=== PATIENT | female | born 1990 | race Caucasian/White ===

== ENCOUNTER 2019-11-30 08:16 | Emergency (ER) | payer MEDICAID ==
--- NOTE | 2019-11-30 10:52 | ER Document Report ---
HPI - HPI Patient complains to provider of: Bilateral ear irritation sore throat Time Seen by Provider: 11/30/19 10:32 Onset: Yesterday Pain Level: 4 Context: 29-year-old female presents emergency department with complaints of bilateral ear irritation and sore throat since yesterday. Reports she used Mucinex and been sucking on throat lozenges but still does not feel well. Denies fever vomiting. Denies recent exposure to strep. Reports her son has a cold. Associated Symptoms: denies: Body/muscle aches, Fever, Nausea, Vomiting - CONSTITUTIONAL Constitutional: DENIES: Fever, Chills - EENT EENT: REPORTS: Sore Throat, Ear Pain. DENIES: Eye problems - NEURO Neurology: DENIES: Headache, Weakness, Vision blurred, Dizzinesss / Vertigo - CARDIOVASCULAR Cardiovascular: DENIES: Chest pain - RESPIRATORY Respiratory: REPORTS: Coughing - DRY. DENIES: Trouble Breathing - GASTROINTESTINAL Gastrointestinal: DENIES: Abdominal Pain, Black / Bloody Stools - URINARY Urinary: DENIES: Dysuria, Urgency, Frequency - REPRODUCTIVE Reproductive: DENIES: : - MUSCULOSKELETAL Musculoskeletal: DENIES: Extremity pain Past Medical History - General Information source: Patient - Social History Smoking Status: Current Every Day Smoker Cigarette use (# per day): Yes Frequency of alcohol use: None Drug Abuse: None Occupation: [employer] Lives with: Family Family History: Arthritis, CAD, COPD, CVA, DM, Hyperlipidemia, Hypertension, Malignancy, Thyroid Disfunction Patient has suicidal ideation: No Patient has homicidal ideation: No Pulmonary Medical History: Reports: Hx Asthma GI Medical History: Reports: Hx Hepatitis - Hepatitis C Musculoskeletal Medical History: Reports Hx Musculoskeletal Deformity, Reports Hx Musculoskeletal Trauma Psychiatric Medical History: Reports: Hx Anxiety, Hx Depression - Anxiety Traumatic Medical History: Denies: Hx Fractures Infectious Medical History: Reports: Hx Hepatitis - Hepatitis C Past Surgical History: Reports: Hx Oral Surgery - Immunizations Immunizations up to date: No Hx Diphtheria, Pertussis, Tetanus Vaccination: No - 2007 Vertical Provider Document - CONSTITUTIONAL Agree With Documented VS: Yes Exam Limitations: No Limitations General Appearance: WD/WN, No Apparent Distress - INFECTION CONTROL TRAVEL OUTSIDE OF THE [place] IN LAST 30 DAYS: No - HEENT HEENT: Atraumatic, Normal ENT Exam, Normocephalic. negative: Conjuctival Injection, Pharyngeal Erythema, Tympanic Membrane Red, Tympanic Membrane Bulging - NECK Neck: Normal Inspection, Supple - RESPIRATORY Respiratory: Breath Sounds Normal, No Respiratory Distress - CARDIOVASCULAR Cardiovascular: Regular Rate - GI/ABDOMEN Gastrointestinal: Abdomen Soft, Abdomen Non-Tender - MUSCULOSKELETAL/EXTREMETIES Musculoskeletal/Extremeties: VICKY BLAKE - NEURO Level of Consciousness: Awake, Alert, Appropriate Motor/Sensory: No Motor Deficit - DERM Integumentary: Warm, Dry Course - Re-evaluation Re-evalutation: 11/30/19 10:55 Patient was instructed on negative strep. She has a clear voice opens mouth wide no tonsillar exudate. She was instructed on throat culture pending. She was also instructed on warm salt water gargles throat lozenges return for concerns. She verbalized understanding to all instructions. - Vital Signs Vital signs: Temp Pulse Resp BP Pulse Ox 97.5 F 90 17 138/79 H 96 11/30/19 08:26 11/30/19 08:26 11/30/19 08:26 11/30/19 08:26 11/30/19 08:26 Discharge - Discharge Clinical Impression: Sore throat, Irritation of both ears Condition: Stable Disposition: HOME, SELF-CARE Instructions: Sore Throat ([facility]) Additional Instructions: *You have been evaluated for a sore throat, bilateral ear irritation *Your strep test was negative. A throat culture is pending. You may be conta cted in 3 to 4 days should you need antibiotics *In the meantime gargle with warm salt water continue to suck on throat lozenges and push fluids *Do not let anyone drink/eat after you *Good hand washing *Follow-up with a primary care provider within 1 week for recheck *Return to ED for worsening condition change, needs, concerns Forms: Return to Work Referrals: JOSEPHINE OATES MD [Primary Care Provider] - Follow up in 1 week
[2019-11-30 10:56] VITALS: BP 137/80
== END 2019-11-30 10:54 | disposition home or self-care (01) ==
LOC: ER 08:16
DX: J02.9 Acute pharyngitis, unspecified (principal); H92.03 Otalgia, bilateral; F17.210 Nicotine dependence, cigarettes, uncomplicated; Z86.19 Personal history of other infectious and parasitic diseases
CPT/HCPCS: 87070; 87880

== ENCOUNTER 2020-01-30 18:48 | Emergency (ER) | payer MEDICAID ==
--- NOTE | 2020-01-30 19:40 | ER Document Report ---
ED General - General Chief Complaint: Vag Bleeding, +preg <12wks Stated Complaint: VAGINAL BLEEDING Time Seen by Provider: 01/30/20 19:17 Primary Care Provider: ROB SHIELDS MD [ACTIVE STAFF] - Follow up as needed JOSEPHINE OATES MD [Primary Care Provider] - Follow up as needed ARCHANA HAN MD [ACTIVE STAFF] - Follow up as needed Mode of Arrival: Ambulatory Information source: Patient TRAVEL OUTSIDE OF THE [place] IN LAST 30 DAYS: No - HPI Onset: Other - over the last few days Onset/Duration: Gradual Quality of pain: No pain Severity: Mild Pain Level: Denies Associated symptoms: Other - heavy vaginal bleeding Exacerbated by: Denies Relieved by: Denies Similar symptoms previously: No Recently seen / treated by doctor: No Notes: 29 year old female here in the ER for heavy vaginal bleeding. The patient says her period was about 10 days late and much heavier than normal. The patient says she took a home test 3 days ago which was positive. The patient denies nausea, vomiting, abdominal pain, pelvic pain, urinary symptoms. - Related Data Allergies/Adverse Reactions: amoxicillin [Amoxicillin] Allergy (Verified 11/30/19 08:25) Penicillins Allergy (Verified 11/30/19 08:25) hives, difficulty breathing Past Medical History - General Information source: Patient - Social History Smoking Status: Current Every Day Smoker Frequency of alcohol use: None Drug Abuse: None Lives with: Family Family History: Arthritis, CAD, COPD, CVA, DM, Hyperlipidemia, Hypertension, Malignancy, Thyroid Disfunction Pulmonary Medical History: Reports: Hx Asthma Endocrine Medical History: GI Medical History: Reports: Hx Hepatitis - Hepatitis C Musculoskeletal Medical History: Reports Hx Musculoskeletal Deformity, Reports Hx Musculoskeletal Trauma Psychiatric Medical History: Reports: Hx Anxiety, Hx Depression - Anxiety Traumatic Medical History: Denies: Hx Fractures Infectious Medical History: Reports: Hx Hepatitis - Hepatitis C Past Surgical History: Reports: Hx Oral Surgery - Immunizations Immunizations up to date: No Hx Diphtheria, Pertussis, Tetanus Vaccination: No - 2007 Review of Systems - Review of Systems Constitutional: No symptoms reported EENT: No symptoms reported Cardiovascular: No symptoms reported Respiratory: No symptoms reported Gastrointestinal: No symptoms reported Genitourinary: No symptoms reported Female Genitourinary: Vaginal bleeding Musculoskeletal: No symptoms reported Skin: No symptoms reported Hematologic/Lymphatic: No symptoms reported Neurological/Psychological: No symptoms reported -: Yes All other systems reviewed and negative Physical Exam - Vital signs Vitals: Temp Pulse Resp BP Pulse Ox 99.4 F 89 16 164/82 H 99 01/30/20 18:49 01/30/20 18:49 01/30/20 18:49 01/30/20 18:49 01/30/20 18:49 - Notes Notes: GENERAL: Well-appearing, well-nourished and in no acute distress. HEAD: Atraumatic, normocephalic. EYES: Pupils equal round and reactive to light, extraocular movements intact, sclera anicteric, conjunctiva are normal. ENT: Nares patent, oropharynx clear without exudates. Moist mucous membranes. NECK: Normal range of motion, supple without lymphadenopathy or JVD. LUNGS: Breath sounds clear to auscultation bilaterally and equal. No wheezes rales or rhonchi. HEART: Regular rate and rhythm without murmurs, rubs or gallops. ABDOMEN: Soft, nontender, normoactive bowel sounds. No guarding, no rebound. No masses appreciated. EXTREMITIES: Normal range of motion, no pitting or edema. No clubbing or cyanosis. NEUROLOGICAL: Cranial nerves II through XII grossly intact. Normal speech, normal gait. PSYCH: Normal mood, normal affect. SKIN: Warm, Dry, normal turgor, no rashes or lesions noted. Course - Re-evaluation Re-evalutation: 01/30/20 20:36 The patient is here for vaginal bleeding in the setting of taking a home test which was positive 3 days ago. The patient's serum HCG is less than 2.69 which is in the negative range. Patient either was never pre gnant or she had a miscarriage extremely early in her . Patient told to follow up with an LOGGING TRUCK DRIVER Doctor or her PCP. The patient did not want to have a pelvic exam since she just had one a month ago with negative testing at her PCPs. - Vital Signs Vital signs: Temp Pulse Resp BP Pulse Ox 99.4 F 89 16 164/82 H 99 01/30/20 18:49 01/30/20 18:49 01/30/20 18:49 01/30/20 18:49 01/30/20 18:49 - Laboratory Result Diagrams: 01/30/20 20:04 01/30/20 20:04 Laboratory results interpreted by me: 01/30/20 01/30/20 20:04 20:04 MCH 33.5 H Chloride 109 H Discharge - Discharge Clinical Impression: Vaginal bleeding Condition: Stable Disposition: HOME, SELF-CARE Instructions: Miscarriage ([facility]), Threatened Miscarriage ([facility]), Vaginal Bleeding ([facility]) Additional Instructions: You came to the ER for vaginal bleeding. Your Beta HCG is 2.39 which is extremely low. Follow up with an LOGGING TRUCK DRIVER Doctor for a repeat Beta HCG. You should also have a repeat pelvic exam since you preferred not to have one in the ER today. Referrals: JOSEPHINE OATES MD [Primary Care Provider] - Follow up as needed ARCHANA HAN MD [ACTIVE STAFF] - Follow up as needed ROB SHIELDS MD [ACTIVE STAFF] - Follow up as needed
[2020-01-30 20:38] LABS: ABSOLUTE EOSINOPHILS # (AUTO) 0.5 10^3/uL (0.0-0.6); ABSOLUTE LYMPHOCYTES (AUTO) 2.9 10^3/uL (0.5-4.7); ABSOLUTE MONOCYTES (AUTO) 0.6 10^3/uL (0.1-1.4); BASOPHILS % (AUTO) 0.6 % (0-2); EOSINOPHILS % (AUTO) 5.7 % (0-6); HEMATOCRIT 36.5 % (36.0-47.0); HEMOGLOBIN 13.1 g/dL (12.0-15.5); LYMPHOCYTES % (AUTO) 35.8 % (13-45); MEAN CORPUSCULAR HEMOGLOBIN 33.5 pg (27.0-33.4); MEAN CORPUSCULAR HGB CONC 35.9 g/dL (32.0-36.0); MEAN CORPUSCULAR VOLUME 93 fl (80-97); MONOCYTES % (AUTO) 7.7 % (3-13); PLATELET COUNT 251 10^3/uL (150-450); RED BLOOD COUNT 3.92 10^6/uL (3.72-5.28); RED CELL DISTRIBUTION WIDTH 12.9 % (11.5-14.0); SEGMENTED NEUTROPHILS % (AUTO) 50.2 % (42-78); TOTAL CELLS COUNTED % (AUTO) 100 %
[2020-01-30 20:51] LABS: APPEARANCE,URINE CLEAR; BILIRUBIN,URINE NEGATIVE (NEGATIVE); COLOR,URINE YELLOW; GLUCOSE, URINE NEGATIVE (NEGATIVE); KETONES,URINE NEGATIVE (NEGATIVE); LEUKOCYTE ESTERASE,URINE NEGATIVE (NEGATIVE); NITRITE,URINE NEGATIVE (NEGATIVE); PROTEIN,URINE NEGATIVE (NEGATIVE); URINE SPECIFIC GRAVITY 1.019; UROBILINOGEN,URINE NEGATIVE mg/dL (<2.0)
[2020-01-30 20:58] LABS: ALBUMIN 3.8 g/dL (3.5-5.0); ALKALINE PHOSPHATASE 47 U/L (38-126); ANION GAP 6 (5-19); ASPARTATE AMINO TRANSFERASE 20 U/L (14-36); BILIRUBIN,TOTAL 0.2 mg/dL (0.2-1.3); BLOOD UREA NITROGEN 14 mg/dL (7-20); CALCIUM 8.5 mg/dL (8.4-10.2); CARBON DIOXIDE 25 mmol/L (22-30); CHLORIDE 109 mmol/L (98-107); GLUCOSE 99 mg/dL (75-110); POTASSIUM 3.6 mmol/L (3.6-5.0); TOTAL PROTEIN 6.7 g/dL (6.3-8.2)
[2020-01-30 21:59] VITALS: BP 146/82
== END 2020-01-30 21:59 | disposition home or self-care (01) ==
LOC: ER 18:48
DX: N93.9 Abnormal uterine and vaginal bleeding, unspecified (principal); F17.200 Nicotine dependence, unspecified, uncomplicated; Z88.1 Allergy status to other antibiotic agents; Z88.0 Allergy status to penicillin; J45.909 Unspecified asthma, uncomplicated
CPT/HCPCS: 36415; 80053; 81001; 84702; 85025; 99284

== ENCOUNTER 2020-02-06 09:11 | Emergency (ER) | payer MEDICAID ==
[2020-02-06 09:19] VITALS: BP 143/80
[2020-02-06] MEDS ORDERED: HYDROCODONE/ACETAMINOPHEN 5-325 MG TABLET PO ONE (09:22)
--- NOTE | 2020-02-06 09:30 | ER Document Report ---
HPI - HPI Patient complains to provider of: Right foot pain Time Seen by Provider: 02/06/20 09:17 Onset: Last week Onset/Duration: Persistent Quality of pain: Burning Pain Level: 4 Context: Patient states she has a previous history of right foot fracture about a year ago. Patient states that she was pushing her vehicle after it broke down and felt a pop in the same area where she had injured her foot in the past. Patient complains of pain with walking. Associated Symptoms: Other - Right foot pain Exacerbated by: Standing, Movement, Walking Relieved by: Denies Similar symptoms previously: Yes Recently seen / treated by doctor: No - ROS ROS below otherwise negative: Yes Systems Reviewed and Negative: Yes All other systems reviewed and negative - CONSTITUTIONAL Constitutional: DENIES: Fever, Chills - NEURO Neurology: DENIES: Weakness - REPRODUCTIVE Reproductive: DENIES: : - MUSCULOSKELETAL Musculoskeletal: REPORTS: Extremity pain - DERM Skin Color: Normal Skin Problems: None Past Medical History - General Information source: Patient - Social History Smoking Status: Current Every Day Smoker Frequency of alcohol use: None Drug Abuse: None Occupation: [employer] Lives with: Family Family History: Arthritis, CAD, COPD, CVA, DM, Hyperlipidemia, Hypertension, Malignancy, Thyroid Disfunction Patient has suicidal ideation: No Patient has homicidal ideation: No Pulmonary Medical History: Reports: Hx Asthma Endocrine Medical History: GI Medical History: Reports: Hx Hepatitis - Hepatitis C Musculoskeletal Medical History: Reports Hx Musculoskeletal Deformity, Reports Hx Musculoskeletal Trauma Psychiatric Medical History: Reports: Hx Anxiety, Hx Depression - Anxiety Traumatic Medical History: Denies: Hx Fractures Infectious Medical History: Reports: Hx Hepatitis - Hepatitis C Past Surgical History: Reports: Hx Oral Surgery - Immunizations Immunizations up to date: No Hx Diphtheria, Pertussis, Tetanus Vaccination: No - 2008 Vertical Provider Document - CONSTITUTIONAL Agree With Documented VS: Yes Exam Limitations: No Limitations General Appearance: WD/WN, No Apparent Distress - INFECTION CONTROL TRAVEL OUTSIDE OF THE [place] IN LAST 30 DAYS: No - HEENT HEENT: Atraumatic, Normocephalic - NECK Neck: Normal Inspection - RESPIRATORY Respiratory: No Respiratory Distress - CARDIOVASCULAR Pulses: Normal: Dorsalis pedis - MUSCULOSKELETAL/EXTREMETIES Musculoskeletal/Extremeties: MAEW, Tender - Right foot tenderness over fifth metatarsal with 1+ edema, Edema. negative: Eccymosis - NEURO Level of Consciousness: Awake, Alert, Appropriate Motor/Sensory: No Motor Deficit Course - Re-evaluation Re-evalutation: 02/06/20 10:22 Patient with reported history of previous fracture at the site of tenderness. Will immobilize and treat for possible occult fracture and refer to orthopedics at this time. Patient verbalized understanding is agreeable with discharge plan of care. - Vital Signs Vital signs: Temp Pulse Resp BP Pulse Ox 97.7 F 68 16 143/80 H 97 02/06/20 09:17 02/06/20 09:17 02/06/20 09:17 02/06/20 09:17 02/06/20 09:17 - Diagnostic Test Radiology reviewed: Image reviewed, Reports reviewed Procedures - Immobilization Right Foot Pre-Proc Neuro Vasc Exam: Normal Immobilizer type: Posterior ankle Performed by: PCT Post-Proc Neuro Vasc Exam: Normal Alignment checked and good: Yes Discharge - Discharge Clinical Impression: Foot injury Qualifiers: Encounter type: initial encounter Laterality: right Qualified Code(s): S99.921A - Unspecified injury of right foot, initial encounter Foot sprain Qualifiers: Encounter type: initial encounter Laterality: right Qualified Code(s): S93.601A - Unspecified sprain of right foot, initial encounter Condition: Stable Disposition: HOME, SELF-CARE Instructions: Ice & Elevation ([facility]), Possible Hidden Fracture ([facility]), Splint Precautions ([facility]), Sprain ([facility]) Additional Instructions: Return immediately for any new or worsening symptoms Followup with your primary care provider, call tomorrow to make a followup appointment Follow-up with orthopedics for further evaluation, call today to make a follow- up appointment Prescriptions: Naproxen [Naprosyn 250 Nmg Tablet] 1 tab PO BID #14 tablet Forms: Parent Work Note, Return to Work Referrals: JOSEPHINE OATES MD [NO LOCAL MD] - Follow up as needed [facility] [Provider Group] - Follow up tomorrow
--- NOTE | 2020-02-06 10:12 | RADIOLOGY REPORT (SQ) ---
EXAM DESCRIPTION: FOOT RIGHT COMPLETE IMAGES COMPLETED DATE/TIME: 02/06/2020 9:39 am REASON FOR STUDY: felt pop, r 5th MT COMPARISON: None. NUMBER OF VIEWS: Three views. TECHNIQUE: AP, lateral and oblique radiographic images acquired of the right foot. LIMITATIONS: None. FINDINGS: MINERALIZATION: Normal. BONES: No definite acute fracture. No dislocation. Subtle sclerotic band and cortical irregularity at the base of the 5th metatarsal possibly related to remote injury or stress reaction. Metatarsus p rimus varus. JOINTS: No effusions. SOFT TISSUES: Foot soft tissue swelling laterally. No radiopaque foreign body. OTHER: No other significant finding. IMPRESSION: No displaced fracture. Subtle sclerotic band and cortical irregularity at the base of t he 5th metatarsal, possibly related to remote injury or stress reaction. Mild lateral forefoot soft tissue swelling. TECHNICAL DOCUMENTATION: JOB ID: [id number] 2010 [employer]- All Rights Reserved Reading location - IP/workstation name: [email or web address]
== END 2020-02-06 10:39 | disposition home or self-care (01) ==
LOC: ER 09:11
DX: S93.601A Unspecified sprain of right foot, initial encounter (principal); X58.XXXA Exposure to other specified factors, initial encounter; F17.200 Nicotine dependence, unspecified, uncomplicated; J45.909 Unspecified asthma, uncomplicated
CPT/HCPCS: 99283

== ENCOUNTER 2020-07-07 20:50 | Emergency (ER) | payer MEDICAID ==
[2020-07-07] MEDS ORDERED: HYDROCODONE/ACETAMINOPHEN 5-325 MG (6 TAB/ER DISP) PO PRN (21:14)
--- NOTE | 2020-07-07 21:16 | ER Document Report ---
HPI - HPI Patient complains to provider of: dental pain Time Seen by Provider: 07/07/20 21:13 Context: 30-year-old female no previous medical problems presents to the emergency room complaining of worsening right upper posterior molar pain that started a month ago. States she fractured the tooth approximately a month ago. States she saw her dentist 2 weeks ago and she was referred to an oral surgeon for extraction which she cannot get done until July. States that she was told to take ibuprofen and Tylenol for the pain. States she is been taking Motrin, Tylenol, aspirin, Aleve, and multiple other [id number] medications without relief. Denies any fevers. Denies any chance of . Associated Symptoms: None Exacerbated by: Denies Relieved by: Denies Similar symptoms previously: No Recently seen / treated by doctor: No - ROS Systems Reviewed and Negative: Yes All other systems reviewed and negative - CONSTITUTIONAL Constitutional: DENIES: Fever - EENT Notes: Dental pain - NEURO Neurology: DENIES: Weakness - REPRODUCTIVE Reproductive: DENIES: : - DERM Skin Color: Normal Skin Problems: None Past Medical History - General Information source: Patient - Social History Smoking Status: Current Every Day Smoker Frequency of alcohol use: None Drug Abuse: None Family History: Arthritis, CAD, COPD, CVA, DM, Hyperlipidemia, Hypertension, Malignancy, Thyroid Disfunction Pulmonary Medical History: Reports: Hx Asthma Endocrine Medical History: GI Medical History: Reports: Hx Hepatitis - Hepatitis C Musculoskeletal Medical History: Reports Hx Musculoskeletal Deformity, Reports Hx Musculoskeletal Trauma Psychiatric Medical History: Reports: Hx Anxiety, Hx Depression - Anxiety Traumatic Medical History: Denies: Hx Fractures Infectious Medical History: Reports: Hx Hepatitis - Hepatitis C Past Surgical History: Reports: Hx Oral Surgery - Immunizations Immunizations up to date: No Hx Diphtheria, Pertussis, Tetanus Vaccination: No - 2007 Vertical Provider Document - CONSTITUTIONAL Agree With Documented VS: Yes Exam Limitations: No Limitations General Appearance: Mild Distress - INFECTION CONTROL TRAVEL OUTSIDE OF THE [place] IN LAST 30 DAYS: No - HEENT HEENT: Atraumatic, Dental Injury, Normocephalic. negative: Pharyngeal Erythema, Tympanic Membrane Red, Tympanic Membrane Bulging Notes: Right upper posterior molar is fractured. There is no erythema or swelling to the gum. It is tender to palpation. No signs of abscess. - NECK Neck: Normal Inspection, Supple, Thyroid Normal - RESPIRATORY Respiratory: Breath Sounds Normal, No Respiratory Distress, Chest Non-Tender - CARDIOVASCULAR Cardiovascular: Regular Rate, Regular Rhythm, No Murmur - MUSCULOSKELETAL/EXTREMETIES Musculoskeletal/Extremeties: FROM, Non-Tender - NEURO Level of Consciousness: Awake, Alert, Appropriate Motor/Sensory: No Motor Deficit, No Sensory Deficit - DERM Integumentary: Warm, Dry, No Rash Course - Re-evaluation Re-evalutation: 07/07/20 21:13 Reviewed patient's E force records no history of narcotic use. Counseled patient that we can send her home with pain medication ([place] pack x6 pills to go ) for couple of days but that she would need to follow-up with a dentist and oral surgeon as scheduled for any additional pain medication. No signs of infection antibiotics not indicated at this time. Patient was given strict return to the emergency room guidelines. Return for any new or worsening symptoms. All questions were answered. Patient verbalized understanding and agrees with plan of care. 07/07/20 21:26 - Vital Signs Vital signs: Temp Pulse Resp BP Pulse Ox 98.2 F 80 12 147/85 H 98 07/07/20 21:01 07/07/20 21:01 07/07/20 21:01 07/07/20 21:01 07/07/20 21:01 Discharge - Discharge Clinical Impression: Chronic dental pain Condition: Stable Disposition: HOME, SELF-CARE Instructions: Toothache ([facility]) Additional Instructions: Soft diet no nuts, no seeds. Medications as prescribed. Outpatient follow-up with dentist and oral surgeon as scheduled. Return to the emergency room for any new or worsening symptoms.
[2020-07-07 21:53] VITALS: BP 132/80
== END 2020-07-07 21:55 | disposition home or self-care (01) ==
LOC: ER 20:50
DX: G89.29 Other chronic pain (principal); K08.9 Disorder of teeth and supporting structures, unspecified; F17.200 Nicotine dependence, unspecified, uncomplicated; Z86.19 Personal history of other infectious and parasitic diseases
CPT/HCPCS: 99283

== ENCOUNTER 2020-07-27 12:22 | Emergency (ER) | payer MEDICAID ==
[2020-07-27] MEDS ORDERED: IBUPROFEN 800 MG TABLET PO ONE (12:39)
--- NOTE | 2020-07-27 12:41 | ER Document Report ---
ED Extremity Problem, Lower - General Chief Complaint: Foot Pain Stated Complaint: FALL/FOOT PAIN Time Seen by Provider: 07/27/20 12:32 Primary Care Provider: [facility] [Provider Group] - Follow up as needed Mode of Arrival: Wheelchair Information source: Patient Notes: 30-year-old female presented to ED for complaint of pain to the lateral aspect of the right foot. She states she was chasing her cat yesterday had it from the landlord because she is not supposed to have a cat. She states she fell when she landed she heard a pop. She has broken the same foot 2 previous times before. She also has a history of asthma. She states she smokes 5 cigarettes a day drinks monthly and does not use any drugs. She has a history of oral surgery as well. She is alert oriented respirations regular nonlabored speaking in full sentences. She does have tenderness to the lateral side of her foot. No obvious swelling or bruising at this time Constitutional: Negative for fever. HENT: Negative for sore throat. Eyes: Negative for visual changes. Cardiovascular: Negative for chest pain. Respiratory: Negative for shortness of breath. Gastrointestinal: Negative for abdominal pain, vomiting or diarrhea. Genitourinary: Negative for dysuria. Musculoskeletal: Pain swelling and tenderness to the lateral aspect of the right foot after falling chasing a cat Skin: Negative for rash. Neurological: Negative for headaches, weakness or numbness. 10 point ROS negative except as marked above and in HPI. PHYSICAL EXAMINATION: GENERAL: Well-appearing, well-nourished and in no acute distress. HEAD: Atraumatic, normocephalic. EYES: Pupils equal round extraocular movements intact, conjunctiva are normal. ENT: Nares patent NECK: Normal range of motion LUNGS: No respiratory distress Musculoskeletal: Pain and swelling tenderness to the lateral aspect of the right foot NEUROLOGICAL: Normal speech, states is very painful to walk PSYCH: Normal mood, normal affect. SKIN: Warm, Dry, normal turgor, mild swelling and bruising to the lateral aspect of the right foot TRAVEL OUTSIDE OF THE [place] IN LAST 30 DAYS: No - HPI Patient complains to provider of: Injury, Pain Location: Foot Occurred: Yesterday Where: Home, Outdoors Onset/Duration: Persistent Quality of pain: Pressure, Sharp Severity: Moderate Pain Level: 4 Context: Fell Recent injury: Yes Associated symptoms: Painful ambulation Exacerbated by: Movement, Walking Relieved by: Elevation, Ice, Rest - Related Data Allergies/Adverse Reactions: amoxicillin [Amoxicillin] Allergy (Verified 07/27/20 12:36) Penicillins Allergy (Verified 07/27/20 12:36) hives, difficulty breathing Past Medical History - General Information source: Patient - Social History Smoking Status: Current Every Day Smoker Frequency of alcohol use: None Drug Abuse: None Lives with: Family Family History: Arthritis, CAD, COPD, CVA, DM, Hyperlipidemia, Hypertension, Malignancy, Thyroid Disfunction - Past Medical History Cardiac Medical History: Reports: None Pulmonary Medical History: Reports: Hx Asthma EENT Medical History: Reports: None Neurological Medical History: Reports: None Endocrine Medical History: Reports: None Renal/ Medical History: Reports: None Malignancy Medical History: Reports: None GI Medical History: Reports: Hx Hepatitis - Hepatitis C Musculoskeletal Medical History: Reports Hx Musculoskeletal Deformity, Reports Hx Musculoskeletal Trauma Skin Medical History: Reports None Psychiatric Medical History: Reports: Hx Anxiety, Hx Depression - Anxiety Traumatic Medical History: Reports: Hx Fractures Infectious Medical History: Reports: Hx Hepatitis - Hepatitis C Past Surgical History: Reports: Hx Oral Surgery - Immunizations Immunizations up to date: No Hx Diphtheria, Pertussis, Tetanus Vaccination: No - 2007 Physical Exam - Vital signs Vitals: Temp Pulse Resp BP Pulse Ox 99.1 F 81 18 135/80 H 97 07/27/20 12:29 07/27/20 12:29 07/27/20 12:29 07/27/20 12:29 07/27/20 12:29 Course - Re-evaluation Re-evalutation: 07/27/20 13:41 Patient came in wearing a Ortho boot that she had from her previous foot fractures. We did remove the boot to examine the foot and x-rayed the foot and then replaced the boot. We will not splint the foot because the boot is actually more productive to the foot. I have informed the patient that she did fracture her fifth metacarpal and she will need to follow-up with orthopedics as soon as possible. She will be treated with a [place] dispense pack for her pain. She has been given instructions on elevation ice and to follow-up. - Vital Signs Vital signs: Temp Pulse Resp BP Pulse Ox 98.1 F 70 18 128/70 H 98 07/27/20 13:45 07/27/20 13:45 07/27/20 13:45 07/27/20 13:45 07/27/20 13:45 - Diagnostic Test Radiology reviewed: Image reviewed, Reports reviewed Discharge - Discharge Clinical Impression: Fracture of fifth metatarsal bone of right foot Qualifiers: Encounter type: initial encounter Fracture type: closed Fracture alignment: nondisplaced Qualified Code(s): S92.354A - Nondisplaced fracture of fifth metatarsal bone, right foot, initial encounter for closed fracture Condition: Stable Disposition: HOME, SELF-CARE Additional Instructions: You have fractured your fifth metatarsal to the right foot. You have already been in a walking boot. I did not put you in a splint as it is not as productive as the boot you have on. ICE & ELEVATION: Apply ice packs frequently against the painful area. Many different schedules are recommended, such as "20 minutes on, 20 minutes off" or "one hour ice, two hours rest." If you need to work, you may need to go longer between ice treatments. You should plan to have the area ice packed AT LEAST one-fourth of the time. The ice should be applied over the wrap, tape, or splint, or over a layer of cloth -- not directly against the skin. Some ice bags have a built-in cloth and can be put directly on the skin. Your injured part should be elevated as much as possible over the next 48 hours. Try to keep the injury above the level of the heart. Avoid use of the injured area. Elevation and rest will decrease the swelling. USE OF RUHN-OKE-GLEZSYR IBUPROFEN: Ibuprofen (Advil, Nuprin, Medipren, Motrin IB) is a medication for fever and pain control. In addition, it has anti- inflammatory effects which may be beneficial, especially in the treatment of injuries. It's best to take ibuprofen with food. Persons with ulcer disease or allergy to aspirin should notify their physician of this before taking ibuprofen. Ibuprofen can be given every four to six hours, for a total of four doses d aily. Age Pain or fever dose Antiinflammatory dose 6-8 yr 200 mg (1 tab) 200 mg (1 tab) 9-11 yr 200 mg (1 tab) 200-400 mg (1-2 tab) 11-14 yr 200-400 mg (1-2 tab) 400 mg (2 tab) 15-adult 400 mg (2 tab) 600 mg (3 tab) ORAL NARCOTIC MEDICATION: You have been given a [place] dispense pack for pain control. This medication is a narcotic. It's best taken with food, as nausea can result if taken on an empty stomach. Don't operate machinery or drive within six hours of taking this medication. Do not combine this medicine with alcohol, or with any medication which can cause sedation (such as cold tablets or sleeping pills) unless you get permission from the physician. Narcotics tend to cause constipation. If possible, drink plenty of fluids and eat a diet high in fiber and fruits. Please be aware that prescription narcotics also have the potential for abuse. People become addicted to these medications because of the general sense of wellbeing that they induce. This feeling along with a significant reduction in tension, anxiety, and aggression provides a stimulating seductive quality to these drugs. Once your pain is under control, we encourage you to discard your unused narcotics. FOLLOW-UP CARE: If you have been referred to a physician for follow-up care, call the physicians office for an appointment as you were instructed or within the next two days. If you experience worsening or a significant change in your symptoms, notify the physician immediately or return to the Emergency Department at any time for re-evaluation. Forms: Elevated Blood Pressure, Smoking Cessation Education Referrals: [facility] [Provider Group] - Follow up as needed
--- NOTE | 2020-07-27 13:20 | RADIOLOGY REPORT (SQ) ---
EXAM DESCRIPTION: FOOT RIGHT COMPLETE IMAGES COMPLETED DATE/TIME: 07/27/2020 12:57 pm REASON FOR STUDY: [place] a Pop When Diving after cat COMPARISON: 02/14/2020 EXAM PARAMETERS: NUMBER OF VIEWS: Three views. TECHNIQUE: AP, lateral and oblique radiographic images acquired of the right foot. LIMITATIONS: None. FINDINGS: MINERALIZATION: Normal. BONES: No dislocation. Nondisplaced fracture of the 5th metatarsal proximal metaphysis, Batista type f racture, possible acute on chronic. JOINTS: No effusion. SOFT TISSUES: No significant soft tissue swelling. No radiopaque foreign body. OTHER: No other significant finding. IMPRESSION: Nondisplaced fracture of the 5th metatarsal proximal metaphysis, Batista type fracture, po ssible acute on chronic. COMMENT: Orthopedic follow-up recommended. TECHNICAL DOCUMENTATION: JOB ID: [id number] 2010 [employer]- All Rights Reserved Reading location - IP/workstation name: [email or web address]
[2020-07-27] MEDS ORDERED: HYDROCODONE/ACETAMINOPHEN 5-325 MG (6 TAB/ER DISP) PO PRN (13:40)
[2020-07-27 13:46] VITALS: BP 128/70
== END 2020-07-27 13:45 | disposition home or self-care (01) ==
LOC: ER 12:22
DX: S92.354A Nondisplaced fracture of fifth metatarsal bone, right foot, initial encounter for closed fracture (principal); M79.671 Pain in right foot; F17.200 Nicotine dependence, unspecified, uncomplicated; W18.30XA Fall on same level, unspecified, initial encounter; Y92.009 Unspecified place in unspecified non-institutional (private) residence as the place of occurrence of the external cause; Z86.19 Personal history of other infectious and parasitic diseases
CPT/HCPCS: 99283

== ENCOUNTER 2020-08-23 05:21 | Day surgery (SDC) | payer MEDICAID ==
--- NOTE | 2020-08-20 09:41 | EKG REPORT ---
SEVERITY:- NORMAL ECG - SINUS RHYTHM : Confirmed by: Vladislav Pereyra MD 20-Aug-2020 09:40:46
--- NOTE | 2020-08-20 09:51 | RADIOLOGY REPORT (SQ) ---
EXAM DESCRIPTION: CHEST PA/LATERAL IMAGES COMPLETED DATE/TIME: 08/20/2020 9:30 am REASON FOR STUDY: PRE-OP COMPARISON: 10/13/2015 EXAM PARAMETERS: NUMBER OF VIEWS: two views TECHNIQUE: Digital Frontal and Lateral radiographic views of the chest acquired. RADIATION DOSE: NA LIMITATIONS: none FINDINGS: LUNGS AND PLEURA: No opacities, masses or pneumothorax. No pleural effusion. MEDIASTINUM AND HILAR STRUCTURES: No masses or contour abnormalities. HEART AND VASCULAR STRUCTURES: Heart normal size. No evidence for failure. BONES: No acute findings. HARDWARE: None in the chest. OTHER: No other significant finding. IMPRESSION: NO SIGNIFICANT RADIOGRAPHIC FINDING IN THE CHEST. TECHNICAL DOCUMENTATION: JOB ID: [id number] 2010 [employer]- All Rights Reserved Reading location - IP/workstation name: [email or web address]
[2020-08-20 10:18] LABS: HEMATOCRIT 41.1 % (36.0-47.0); HEMOGLOBIN 14.3 g/dL (12.0-15.5); MEAN CORPUSCULAR HEMOGLOBIN 32.4 pg (27.0-33.4); MEAN CORPUSCULAR HGB CONC 34.8 g/dL (32.0-36.0); MEAN CORPUSCULAR VOLUME 93 fl (80-97); PLATELET COUNT 249 10^3/uL (150-450); RED BLOOD COUNT 4.41 10^6/uL (3.72-5.28); RED CELL DISTRIBUTION WIDTH 12.3 % (11.5-14.0); WHITE BLOOD COUNT 8.2 10^3/uL (4.0-10.5)
[2020-08-20 10:21] LABS: APPEARANCE,URINE CLEAR; BILIRUBIN,URINE NEGATIVE (NEGATIVE); COLOR,URINE YELLOW; GLUCOSE, URINE NEGATIVE (NEGATIVE); KETONES,URINE NEGATIVE (NEGATIVE); LEUKOCYTE ESTERASE,URINE TRACE (NEGATIVE); NITRITE,URINE NEGATIVE (NEGATIVE); PROTEIN,URINE NEGATIVE (NEGATIVE); URINE SPECIFIC GRAVITY 1.024; UROBILINOGEN,URINE NEGATIVE mg/dL (<2.0)
[2020-08-20 10:35] LABS: ANION GAP 12 (5-19); BLOOD UREA NITROGEN 17 mg/dL (7-20); CALCIUM 9.2 mg/dL (8.4-10.2); CARBON DIOXIDE 22 mmol/L (22-30); CHLORIDE 106 mmol/L (98-107); GLUCOSE 109 mg/dL (75-110); POTASSIUM 4.1 mmol/L (3.6-5.0)
[~2020-08-23 05:21] MED LIST: CEFAZOLIN 2 GM/D5W RTU 0 GM/0 ML RTUPB IV ONE; CEFAZOLIN 2 GM/D5W RTU 2 GM/50 ML RTUPB IV PRN; CLINDAMYCIN 900 MG/D5W RTU 900 MG/50 ML RTUPB IV ONE; CLINDAMYCIN 900 MG/D5W RTU 900 MG/50 ML RTUPB IV PRN; LACTATED RINGERS 1000 ML IV PRN; LIDOCAINE 0.5% INJ-PF (5 MG/ML) 50 ML SDV SUBCUT PRN
[2020-08-23] MEDS ORDERED: ONDANSETRON HCL INJ/PF 4 MG/2 ML SDV ONE (07:16)
[2020-08-23] MEDS ORDERED: PROPOFOL INJ 200 MG/20 ML VIAL IV ONE (07:16)
[2020-08-23] MEDS ORDERED: MIDAZOLAM 2 MG/2 ML INJ ONE (07:16)
[2020-08-23] MEDS ORDERED: MORPHINE SULFATE 10 MG/ML INJ ONE (07:16)
[2020-08-23] MEDS ORDERED: FENTANYL CITRATE INJ/PF 100 MCG/2 ML AMPUL ONE ×2 (07:16→08:25)
[2020-08-23] MEDS ORDERED: DEXAMETHASONE SOD PHOSPHATE INJ 4 MG/1 ML VIAL ONE (07:16)
[2020-08-23] MEDS ORDERED: LIDOCAINE 1% INJ-PF (10 MG/ML) 30 ML SDV ONE (08:00)
[2020-08-23] MEDS ORDERED: BUPIVACAINE HCL 0.5 % INJ/PF 30 ML SDV ONE (08:00)
[2020-08-23] MEDS ORDERED: MEPERIDINE HCL/PF INJ 25 MG/1 ML DISP.SYRIN IV PRN (08:01)
[2020-08-23] MEDS ORDERED: FENTANYL CITRATE INJ/PF 100 MCG/2 ML AMPUL IV PRN ×3 (08:01)
[2020-08-23] MEDS ORDERED: DIPHENHYDRAMINE HCL 50 MG/ML VIAL IV PRN (08:01)
[2020-08-23] MEDS ORDERED: OXYCODONE-ACETAMINOPHEN 5-325 MG TABLET PO PRN ×3 (08:01→09:39)
[2020-08-23] MEDS ORDERED: PROMETHAZINE HCL INJ 25 MG/1 ML VIAL IV PRN ×2 (08:01)
[2020-08-23] MEDS ORDERED: MORPHINE SULFATE 10 MG/ML INJ IV PRN ×2 (08:01→09:39)
[2020-08-23] MEDS ORDERED: OXYCODONE-ACETAMINOPHEN 5-325 MG TABLET ONE (08:38)
--- NOTE | 2020-08-23 09:10 | Operative Report ---
Operative Report DATE OF SURGERY: 08/23/20 PREOPERATIVE DIAGNOSIS: Right fifth metatarsal base fracture, delayed union. POSTOPERATIVE DIAGNOSIS: Right fifth metatarsal base fracture, delayed union. OPERATION: Right fifth metatarsal fracture closed reduction percutaneous screw fixation. SURGEON: DEBORAH FULTON JR ANESTHESIA: GA COMPLICATIONS: None ESTIMATED BLOOD LOSS: Minimal PROCEDURE: Patient has sustained multiple injuries to her fifth metatarsal on the right foot. This is included prior stress fractures with the most recent progressing to a delayed union. We discussed treatment alternatives in the office and the patient elected to proceed with surgical fixation of her right fifth metatarsal. Patient was brought to the operating suite and laid supine on the operating table. They are provided 2 g Ancef preoperatively. They are placed under general anesthesia followed by preparation of the right leg in standard sterile fashion. An appropriate timeout was performed. Tourniquet was inflated to 250 mmHg. Under fluoroscopy the base of the fifth metatarsal was evaluated and a K wire was placed for appropriate trajectory of the screw and inserted percutaneously. This was then advanced under fluoroscopic guidance. A guide was used to select screw with and the depth was measured as well. Incision was extended both distally and proximally from the K wire with a 15 blade. This was then bluntly dissected with a hemostat to allow for atraumatic screw passage to the base of the fifth metatarsal. A 50 mm 5-0 screw was inserted over the K wire. This was advanced and achieved excellent bite. Again this was checked under fluoroscopy on both AP and lateral views and found to be in excellent position. Following this the K wire was then removed. The wound was then copiously irrigated with dilute Betadine solution followed by a portal stitch with 3-0 nylon. After this a sterile dressing was placed followed by a well- padded posterior splint. The patient was then awakened from anesthesia and transferred to PACU in stable condition
[2020-08-23] MEDS ORDERED: ONDANSETRON HCL INJ/PF 4 MG/2 ML SDV IV PRN (09:39)
[2020-08-23] MEDS ORDERED: RINGERS SOLUTION,LACTATED 1,000 ML IV PRN (09:39)
--- NOTE | 2020-08-23 09:42 | Discharge Summary ---
Discharge Summary (SDC) - Discharge Final Diagnosis: Right fifth metatarsal fracture Date of Surgery: 08/23/20 Discharge Date: 08/23/20 Condition: Stable Forms: ASU Anesthesia D/C Instruction, Discharge POC-Surgical Service Treatment or Instructions: Maintain splint clean and intact Return to my office in approximately 10 days for follow-up and suture removal Keep lower extremity elevated No acute operating motor vehicles under the influence of narcotics, use as prescribed. Referrals: DEBORAH FULTON JR, DO [ACTIVE PROVISIONAL STAFF] - 09/04/20 10:30 am (Follow up as scheduled) Discharge Diet: As Tolerated Respiratory Treatments at Home: Deep Breathing/Coughing Discharge Activity: Activity As Tolerated, Balance Activity w/Rest, No Driving, Keep Legs Elevated, No tub bath Home Care Assistance: None Needed Adaptive Devices on Discharge: Axillary Crutches Report the Following to Your Physician Immediately: Shortness of Breath, Nausea, Vomiting, Increase in Pain, Fever over 101 Degrees, Unusual Bleeding, Drainage- Yellow
[2020-08-23 10:27] VITALS: BP 143/85
--- NOTE | 2020-08-23 11:50 | RADIOLOGY REPORT (SQ) ---
EXAM DESCRIPTION: FOOT RIGHT 2 VIEWS IMAGES COMPLETED DATE/TIME: 08/23/2020 9:18 am REASON FOR STUDY: PERC PINNING RIGHT FOOT/5TH METATARSAL ASSISTED WITH FLUORO IN OR S92.354D NONDIS P FX OF 5TH METATARSAL BONE, R FT, 7THD COMPARISON: None. NUMBER OF VIEWS: Three views. TECHNIQUE: AP, lateral and oblique radiographic images acquired of the right foot. LIMITATIONS: None. FINDINGS: MINERALIZATION: Normal. BONES: No acute fracture or dislocation. No worrisome bone lesions. JOINTS: No effusions. SOFT TISSUES: No soft tissue swelling. No foreign body. OTHER: No other significant finding. IMPRESSION: NEGATIVE STUDY OF THE RIGHT FOOT. NO RADIOGRAPHIC EVIDENCE OF ACUTE INJURY. TECHNICAL DOCUMENTATION: JOB ID: [id number] 2010 [employer]- All Rights Reserved Reading location - IP/workstation name: [email or web address]
[2020-08-23] MEDS ORDERED: SUCCINYLCHOLINE CHLORIDE INJ 200 MG/10 ML VIAL ONE (14:48)
--- NOTE | 2020-08-23 17:14 | RADIOLOGY REPORT (SQ) ---
EXAM DESCRIPTION: NO CHG FLUORO IMAGES COMPLETED DATE/TIME: 08/23/2020 9:18 am REASON FOR STUDY: PERC PINNING RIGHT FOOT/5TH METATARSAL ASSISTED WITH FLUORO IN OR S92.354D NONDIS P FX OF 5TH METATARSAL BONE, R FT, 7THD COMPARISON: 07/27/2020 FLUOROSCOPY TIME: 0.2 minutes 2 images saved to PACS. TECHNIQUE: Intra-operative images acquired during surgical procedure to evaluate progress. NUMBER OF IMAGES: 2 LIMITATIONS: None. FINDINGS: 2 fluoroscopic spot images demonstrate open reduction, internal fixation of the 5th metata rsal fracture. Images are submitted for administrative purposes only. Please refer to the operative report for full details regarding this procedure. IMPRESSION: IMAGE(S) OBTAINED DURING PROCEDURE. COMMENT: Quality ID [id number]: Final reports for procedures using fluoroscopy that document radiation exp osure indices, or exposure time and number of fluorographic images (if radiation exposure indices are not available) Please consult full operative report of the attending physician for description of the procedure. TECHNICAL DOCUMENTATION: JOB ID: [id number] 2010 [email or web address]- All Rights Reserved Reading location - IP/workstation name: [email or web address]
== END 2020-08-23 10:05 | disposition home or self-care (01) ==
LOC: OROUT 05:21
PROVIDERS: ATTEND Orthopaedic Surgery
DX: S92.351G Displaced fracture of fifth metatarsal bone, right foot, subsequent encounter for fracture with delayed healing (principal); W19.XXXD Unspecified fall, subsequent encounter; Z03.818 Encounter for observation for suspected exposure to other biological agents ruled out; J45.909 Unspecified asthma, uncomplicated; F17.210 Nicotine dependence, cigarettes, uncomplicated; Z79.899 Other long term (current) drug therapy; E66.01 Morbid (severe) obesity due to excess calories
CPT/HCPCS: 93005; 36415; 85027; 87635; 81025; 80048; 81001; 71046; 73620; 93010; 28476; J2250; J3490 ×3; J1100; J3010; J2270; J0330; J2405; J2704; C9803; J0690

== ENCOUNTER 2020-10-19 15:23 | Emergency (ER) | payer MEDICAID ==
[2020-10-19] MEDS ORDERED: ALBUTEROL SULFATE 0.083% NEB 2.5 MG/3 ML AMPUL NEB SCH (17:15)
--- NOTE | 2020-10-19 17:17 | ER Document Report ---
ED Medical Screen (RME) - General Stated Complaint: coughing x2days Time Seen by Provider: 10/19/20 16:56 Primary Care Provider: ALEX CRUZ MD [Primary Care Provider] - Follow up as needed Notes: Presents complaining of cough, chest pain difficulty breathing for the past 2 days. Patient is currently 7 weeks G3, P1. Patient denies any fever. Patient does report nausea. Patient states chest pain is constant tightness. Patient does have a history of asthma. I have greeted and performed a rapid initial assessment of this patient. A comprehensive ED assessment and evaluation of the patient, analysis of test results and completion of the medical decision making process will be conducted by additional ED providers. TRAVEL OUTSIDE OF THE [place] IN LAST 30 DAYS: No - Related Data Allergies/Adverse Reactions: amoxicillin [Amoxicillin] Allergy (Verified 08/23/20 05:55) Penicillins Allergy (Verified 08/23/20 05:55) hives, difficulty breathing ALL CILLINS Allergy (Severe, Uncoded 08/20/20 08:55) Past Medical History - Past Medical History Cardiac Medical History: Denies: Hx Coronary Artery Disease, Hx Heart Attack, Hx Hypertension Pulmonary Medical History: Denies: Hx Asthma, Hx Bronchitis, Hx COPD, Hx Pneumonia Neurological Medical History: Denies: Hx Cerebrovascular Accident, Hx Seizures Endocrine Medical History: GI Medical History: Reports: Hx Hepatitis - Hepatitis C Musculoskeltal Medical History: Denies Hx Arthritis, Reports Hx Musculoskeletal Deformity, Reports Hx Musculoskeletal Trauma Psychiatric Medical History: Reports: Hx Anxiety, Hx Depression - Anxiety Traumatic Medical History: Reports: Hx Fractures Infectious Medical History: Reports: Hx Hepatitis - Hepatitis C Past Surgical History: Reports: Hx Oral Surgery - Immunizations Immunizations up to date: No Hx Diphtheria, Pertussis, Tetanus Vaccination: No Physical Exam - Vital signs Vitals: Temp Pulse Resp BP Pulse Ox 98.5 F 89 16 142/87 H 100 10/19/20 15:34 10/19/20 15:34 10/19/20 15:34 10/19/20 15:34 10/19/20 15:34 - Respiratory Respiratory status: No respiratory distress. No: Labored, Tachypnea Breath sounds: Nonproductive cough, Wheezing - Faint wheeze to right lower lobe Chest palpation: Normal Course - Re-evaluation Re-evalutation: 10/19/20 17:15 Patient tearful, very anxious in triage. Patient upset that she was put to wait in a high risk section of the lobby due to her symptoms that are worrisome for possible Covid. Patient offered that she could wait in her vehicle although patient came by EMS. Spoke with charge nurse Ivanna who advised offering patient an N95 mask and offered that patient could wait outside or under the breezeway or in the appropriate section as previously advised, as there are currently no available beds. Patient became upset and angrily left out of the triage area refusing to take an N95 mask. - Vital Signs Vital signs: Temp Pulse Resp BP Pulse Ox 98.5 F 89 16 142/87 H 100 10/19/20 15:34 10/19/20 15:34 10/19/20 15:34 10/19/20 15:34 10/19/20 15:34 Doctor's Discharge - Discharge Referrals: ALEX CRUZ MD [Primary Care Provider] - Follow up as needed
--- NOTE | 2020-10-19 18:12 | RADIOLOGY REPORT (SQ) ---
EXAM DESCRIPTION: U/S OB TRANSVAGINAL W/O DOP IMAGES COMPLETED DATE/TIME: 10/19/2020 5:48 pm REASON FOR STUDY: pelvic cramping COMPARISON: None. TECHNIQUE: Transvaginal static and realtime grayscale images acquired of the pelvis. Additional adi cted spectral and color Doppler images recorded. All images stored on PACs. bHCG: Pending. CLINICAL DATES: 7 week 3 day LIMITATIONS: None. FINDINGS: FETUS: Single Living intrauterine . ULTRASOUND EGA: 6 week 3 day ULTRASOUND LASHAWN: 06/11/2021 EFW: Not applicable less than 20 weeks. CRL: 0.54 cm, 6 week 2 day. FHR: 125 beats per minute. SURVEY: Too early to assess. AMNIOTIC FLUID: Adequate amount. PLACENTA: Not yet developed due to early gestation. SUBCHORIONIC BLEED: No. SIZE OF BLEED: Not applicable. UTERUS: No masses. No anomalies. CERVICAL LENGTH: 2 cm Closed. RIGHT ADNEXA: Normal ovary with normal vascular flow. No adnexal free fluid. 1.7 cm cyst. LEFT ADNEXA: Ovary not identified due to poor acoustical window. No adnexal free fluid. No adnexal masses. FREE FLUID: None. OTHER: No other significant finding. IMPRESSION: LIVING INTRAUTERINE . EGA 6 week 3 day Trimester of : First trimester - 0 to 13 weeks. TECHNICAL DOCUMENTATION: JOB ID: [id number] 2010 [employer]- All Rights Reserved rev Reading location - IP/workstation name: [email or web address]
--- NOTE | 2020-10-19 18:13 | RADIOLOGY REPORT (SQ) ---
EXAM DESCRIPTION: CHEST SINGLE VIEW IMAGES COMPLETED DATE/TIME: 10/19/2020 5:57 pm REASON FOR STUDY: cp, cough, sob COMPARISON: 08/20/2020 NUMBER OF VIEWS: One view. TECHNIQUE: Single frontal radiographic view of the chest acquired. LIMITATIONS: None. FINDINGS: LUNGS AND PLEURA: No opacities, masses or pneumothorax. No pleural effusion. MEDIASTINUM AND HILAR STRUCTURES: No masses. Contour normal. HEART AND VASCULAR STRUCTURES: Heart normal in size. Normal vasculature. BONES: No acute findings. HARDWARE: None in the chest. OTHER: No other significant finding. IMPRESSION: NO SIGNIFICANT RADIOGRAPHIC FINDING IN THE CHEST. TECHNICAL DOCUMENTATION: JOB ID: [id number] 2010 [employer]- All Rights Reserved Reading location - IP/workstation name: [email or web address]
[2020-10-19 18:47] LABS: ABSOLUTE BASOPHILS # (AUTO) 0.1 10^3/uL (0.0-0.2); ABSOLUTE LYMPHOCYTES (AUTO) 3.1 10^3/uL (0.5-4.7); ABSOLUTE MONOCYTES (AUTO) 0.9 10^3/uL (0.1-1.4); ABSOLUTE NEUT (AUTO) 7.4 10^3/uL (1.7-8.2); BASOPHILS % (AUTO) 0.6 % (0-2); EOSINOPHILS % (AUTO) 8.2 % (0-6); HEMATOCRIT 37.3 % (36.0-47.0); HEMOGLOBIN 13.5 g/dL (12.0-15.5); LYMPHOCYTES % (AUTO) 24.9 % (13-45); MEAN CORPUSCULAR HEMOGLOBIN 33.3 pg (27.0-33.4); MEAN CORPUSCULAR HGB CONC 36.3 g/dL (32.0-36.0); MEAN CORPUSCULAR VOLUME 92 fl (80-97); MONOCYTES % (AUTO) 7.3 % (3-13); PLATELET COUNT 237 10^3/uL (150-450); RED BLOOD COUNT 4.07 10^6/uL (3.72-5.28); RED CELL DISTRIBUTION WIDTH 12.8 % (11.5-14.0); TOTAL CELLS COUNTED % (AUTO) 100 %; WHITE BLOOD COUNT 12.5 10^3/uL (4.0-10.5)
[2020-10-19 18:56] LABS: APPEARANCE,URINE SLIGHTLY-CLOUDY; BILIRUBIN,URINE NEGATIVE (NEGATIVE); COLOR,URINE YELLOW; GLUCOSE, URINE NEGATIVE (NEGATIVE); KETONES,URINE NEGATIVE (NEGATIVE); LEUKOCYTE ESTERASE,URINE TRACE (NEGATIVE); NITRITE,URINE NEGATIVE (NEGATIVE); PROTEIN,URINE NEGATIVE (NEGATIVE); URINE SPECIFIC GRAVITY 1.025; UROBILINOGEN,URINE NEGATIVE mg/dL (<2.0)
[2020-10-19 18:57] LABS: ANION GAP 12 (5-19); BLOOD UREA NITROGEN 12 mg/dL (7-20); CALCIUM 9.3 mg/dL (8.4-10.2); CARBON DIOXIDE 22 mmol/L (22-30); CHLORIDE 105 mmol/L (98-107); GLUCOSE 107 mg/dL (75-110)
[2020-10-19] MEDS ORDERED: IPRATROPIUM/ALBUTEROL 0.5-2.5 MG/3 ML AMPUL NEB ONE (19:51)
--- NOTE | 2020-10-19 20:01 | EKG REPORT ---
SEVERITY:- NORMAL ECG - SINUS RHYTHM : Confirmed by: Vladislav Pereyra MD 19-Oct-2020 20:00:34
[2020-10-19] MEDS ORDERED: ALBUTEROL SULFATE 0.083% NEB 2.5 MG/3 ML AMPUL NEB ONE (20:03)
[2020-10-19] MEDS ORDERED: ALBUTEROL SULFATE HFA (90 MCG/PUFF) 8 GM MDI (1 MDI/ER DISP) IH PRN (20:42)
--- NOTE | 2020-10-19 20:43 | ER Document Report ---
ED General - General Stated Complaint: coughing x2days Time Seen by Provider: 10/19/20 16:56 Primary Care Provider: ALEX CRUZ MD [Primary Care Provider] - Follow up as needed Notes: Patient is a 30-year-old female, currently 7 weeks who presents emergency department with a cough, chest pain, and shortness of breath for the past 2 days. Patient has a history of asthma. States that she feels after the breathing treatments ordered from triage she is breathing better. Patient reports that she does have some cramping. Denies any vaginal bleeding. Patient is G3, P1. TRAVEL OUTSIDE OF THE [place] IN LAST 30 DAYS: No - Related Data Allergies/Adverse Reactions: amoxicillin [Amoxicillin] Allergy (Verified 08/23/20 05:55) Penicillins Allergy (Verified 08/23/20 05:55) hives, difficulty breathing ALL CILLINS Allergy (Severe, Uncoded 08/20/20 08:55) Past Medical History - General Information source: Patient - Social History Smoking Status: Unknown if Ever Smoked Family History: Arthritis, CAD, COPD, CVA, DM, Hyperlipidemia, Hypertension, Malignancy, Thyroid Disfunction - Past Medical History Cardiac Medical History: Denies: Hx Coronary Artery Disease, Hx Heart Attack, Hx Hypertension Pulmonary Medical History: Denies: Hx Asthma, Hx Bronchitis, Hx COPD, Hx Pneumonia Neurological Medical History: Denies: Hx Cerebrovascular Accident, Hx Seizures Endocrine Medical History: GI Medical History: Reports: Hx Hepatitis - Hepatitis C Musculoskeletal Medical History: Denies Hx Arthritis, Reports Hx Musculoskeletal Deformity, Reports Hx Musculoskeletal Trauma Psychiatric Medical History: Reports: Hx Anxiety, Hx Depression - Anxiety Traumatic Medical History: Reports: Hx Fractures Infectious Medical History: Reports: Hx Hepatitis - Hepatitis C Past Surgical History: Reports: Hx Oral Surgery - Immunizations Immunizations up to date: No Hx Diphtheria, Pertussis, Tetanus Vaccination: No Review of Systems - Review of Systems Notes: REVIEW OF SYSTEMS: CONSTITUTIONAL : Denies recent illness. Denies recent unintentional weight loss. Denies fever, chills, or sweats. EENT: Denies eye, ear, throat, or mouth pain, discharge, or symptoms. Denies nasal or sinus congestion. CARDIOVASCULAR: Denies chest pain. RESPIRATORY: See HPI. GASTROINTESTINAL: Denies nausea, vomiting, and diarrhea. Denies constipation. See HPI. GENITOURINARY: Denies difficulty urinating, burning, blood in urine, urgency or frequency. FEMALE GENITOURINARY: Denies abnormal or irregular periods. Denies abnormal bleeding. See HPI. MUSCULOSKELETAL: Denies neck and back pain. Denies joint pain or swelling. SKIN: Denies rash, itchiness, or lesions HEMATOLOGIC : Denies easy bruising or bleeding. LYMPHATIC: Denies swollen, painful, enlarged glands. NEUROLOGICAL: Denies no numbness or tingling denies weakness. Denies headache. Denies altered mental status. Denies alteration in speech. PSYCHIATRIC: Denies stress, anxiety, alteration in sleep patterns, or depression. All other systems reviewed and negative. Physical Exam - Vital signs Vitals: Temp Pulse Resp BP Pulse Ox 98.5 F 89 16 142/87 H 100 10/19/20 15:34 10/19/20 15:34 10/19/20 15:34 10/19/20 15:34 10/19/20 15:34 - Notes Notes: PHYSICAL EXAMINATION: GENERAL: Appears well, healthy, well-nourished, no acute distress. HEAD: Normocephalic, atraumatic. EYES: PERRL, conjunctiva normal, all extraocular movements intact, sclera nonicteric ENT: Moist mucous membranes. NECK: Supple, no noticeable swelling, redness, rash. Normal range of motion. LUNGS: Equal breath sounds bilaterally and clear to auscultation. No wheezes rales or rhonchi. CARDIOVASCULAR: S1-S2, regular rate, regular rhythm. Radial pulses 2+, normal. ABDOMEN: Normoactive bowel sounds. Soft, nontender, no guarding, no rebound tenderness, and no masses palpated. EXTREMITIES: Normal strength and range of motion, no pitting or edema. No cyanosis. NEUROLOGICAL: Moves all extremities upon command. Strength 5/5 in all extremities. PSYCH: Normal mood, normal affect. SKIN: Warm, dry. No rash, lesions, ulcerations noted. Normal skin turgor. Course - Re-evaluation Re-evalutation: 10/19/20 Chest x-ray is normal. No pneumonia noted. Hematology shows a leukocytosis of 12,500. No anemia noted. Chemistry panel is normal. hCG is 40,241, consistent with her noted on ultrasound. Urinalysis shows trace leukocytes with 8 WBCs. Urine will be sent for culture. We will start the patient on Keflex. She will follow-up with her ENTERTAINMENT DANCER. Follow-up precautions were given. Verbal discharge instructions were given to the patient. They verbalized understanding. They are stable for discharge. - Vital Signs Vital signs: Temp Pulse Resp BP Pulse Ox 97.6 F 80 18 137/58 H 100 10/19/20 21:42 10/19/20 21:42 10/19/20 21:42 10/19/20 21:42 10/19/20 21:42 - Laboratory Results Result Diagrams: 10/19/20 18:15 10/19/20 18:15 Laboratory Results Interpreted: 10/19/20 10/19/20 10/19/20 18:15 18:15 18:15 WBC 12.5 H MCHC 36.3 H Eos % (Auto) 8.2 H Absolute Eos (auto) 1.0 H Beta HCG, Quant 15399.00 H Ur Leukocyte Esterase TRACE H Critical Laboratory Results Reviewed: No Critical Results - Radiology Results Critical Radiology Results Reviewed: No Critical Results - EKG Interpretation by Me Additional EKG results interpreted by me: 10/19/20 20:54 Sinus rhythm. Rate 77. MO 124; QRS 90; QT 396; QTc 449. No ST elevations or depressions noted. No acute change from previous EKG done on August 20, 2020. Discharge - Discharge Clinical Impression: Cough Condition: Stable Disposition: HOME, SELF-CARE Additional Instructions: You are seen today in the emergency department for cough. Continue your albuterol inhaler. You can take over the counter medications. Refer to your list that you have for your medications that are safe during . Your ultrasound was normal. Your chest x-ray was also normal. You also have a urinary tract infection. Take your antibiotics as prescribed. Follow-up with your ENTERTAINMENT DANCER in regards to this visit. Prescriptions: Cephalexin [Keflex] 500 mg PO BID #14 capsule Referrals: ALEX CRUZ MD [Primary Care Provider] - Follow up as needed
[2020-10-19] MEDS ORDERED: CEPHALEXIN 500 MG CAPSULE PO ONE (20:51)
[2020-10-19 21:43] VITALS: BP 137/58
== END 2020-10-19 21:45 | disposition home or self-care (01) ==
LOC: ER 15:23
DX: O26.91 Pregnancy related conditions, unspecified, first trimester (principal); R05 Cough; R07.9 Chest pain, unspecified; R06.02 Shortness of breath; Z3A.01 Less than 8 weeks gestation of pregnancy; Z88.0 Allergy status to penicillin; Z86.19 Personal history of other infectious and parasitic diseases
CPT/HCPCS: 93005; 99285; 36415; 87086; 84702; 85025; 80048; 81001; 71045; 76817; 93010; J7613; J3490

== ENCOUNTER 2020-10-24 03:48 | Emergency (ER) | payer MEDICAID ==
--- NOTE | 2020-10-24 09:47 | ER Document Report ---
Entered by MELISA OATES SCRIBE 10/24/20 0928 Acting as scribe for:MARYAN MUKHERJEE IV, MD ED General - General Chief Complaint: Asthma Exacerbation Stated Complaint: SHORTNESS OF BREATH Primary Care Provider: ALEX CRUZ MD [Primary Care Provider] - Follow up as needed Mode of Arrival: Medic Information source: Patient Notes: This 30 year old female patient who is currently x8 weeks and has a history of asthma presents to the ED today via EMS with complaints of shortness of breath and chest congestion for the past x1 week. Patient states that she was seen here x5 days ago with the same complaint, but was given an inhaler "with only 20 puffs" and an antibiotic for an UTI. She states that she has been having difficulty sleeping for the last x4 days due to her symptoms and is requesting a prescription for steroids to clear up her chest congestion. Denies fever, runny nose, or nose congestion. She did receive Solumedrol and a Xopenex treatment via EMS. She is a current every day smoker and states that she has "cut down" fro 0.5 ppd to 1 or 2 cigarettes a day. She notes having plans to quit because she is . TRAVEL OUTSIDE OF THE [place] IN LAST 30 DAYS: No - Related Data Allergies/Adverse Reactions: amoxicillin [Amoxicillin] Allergy (Verified 10/24/20 04:33) Penicillins Allergy (Verified 10/24/20 04:33) hives, difficulty breathing ALL CILLINS Allergy (Severe, Uncoded 08/20/20 08:55) Home Medications: KEFLEX Past Medical History - General Information source: Patient, [facility] Records - Social History Smoking Status: Current Every Day Smoker Cigarette use (# per day): Yes - 1-2 cigarettes Chew tobacco use (# tins/day): No Smoking Education Provided: No Frequency of alcohol use: None Drug Abuse: None Lives with: Family Family History: Reviewed & Not Pertinent, Arthritis, CAD, COPD, CVA, DM, Hyperlipidemia, Hypertension, Malignancy, Thyroid Disfunction Pulmonary Medical History: Reports: Hx Asthma Endocrine Medical History: GI Medical History: Reports: Hx Hepatitis - Hepatitis C Musculoskeletal Medical History: Reports Hx Musculoskeletal Deformity, Reports Hx Musculoskeletal Trauma Psychiatric Medical History: Reports: Hx Anxiety, Hx Depression Traumatic Medical History: Reports: Hx Fractures Infectious Medical History: Reports: Hx Hepatitis - Hepatitis C Past Surgical History: Reports: Hx Oral Surgery - Immunizations Immunizations up to date: No Hx Diphtheria, Pertussis, Tetanus Vaccination: No Review of Systems - Review of Systems Constitutional: See HPI. denies: Fever EENT: See HPI. denies: Nose congestion, Nose discharge Cardiovascular: No symptoms reported Respiratory: See HPI, Short of breath, Other - Chest congestion Gastrointestinal: No symptoms reported Genitourinary: No symptoms reported Female Genitourinary: No symptoms reported Musculoskeletal: No symptoms reported Skin: No symptoms reported Hematologic/Lymphatic: No symptoms reported Neurological/Psychological: No symptoms reported -: Yes All other systems reviewed and negative Physical Exam - Vital signs Vitals: Temp Pulse Resp BP Pulse Ox 98.3 F 86 18 141/82 H 94 10/24/20 03:56 10/24/20 03:56 10/24/20 03:56 10/24/20 03:56 10/24/20 03:56 - General General appearance: Appears well, Alert In distress: None - HEENT Head: Normocephalic, Atraumatic Eyes: Normal Pupils: PERRL - Respiratory Respiratory status: No respiratory distress Chest status: Nontender Breath sounds: Normal. No: Decreased air movement, Rhonchi, Wheezing Chest palpation: Normal - Cardiovascular Rhythm: Regular Heart sounds: Normal auscultation Murmur: No - Abdominal Inspection: Normal Distension: No distension Bowel sounds: Normal Tenderness: Nontender - Abdomen soft Organomegaly: No organomegaly - Back Back: Normal, Nontender - Extremities General upper extremity: Normal inspection General lower extremity: Normal inspection. No: Edema - Neurological Neuro grossly intact: Yes Orientation: AAOx4 [place] Coma Scale Eye Opening: Spontaneous [place] Coma Scale Verbal: Oriented [place] Coma Scale Motor: Obeys Commands [place] Coma Scale Total: 15 - Psychological Associated symptoms: Normal affect, Normal mood - Skin Skin Temperature: Warm Skin Moisture: Dry Skin Color: Normal Course - Re-evaluation Re-evalutation: 10/24/20 09:32 Diagnosis: Plan of treatment discussed with patient. All questions were answered prior to discharge. Emergency signs and symptoms, reasons to return to the emergency department discussed with patient. - Vital Signs Vital signs: Temp Pulse Resp BP Pulse Ox 98.3 F 86 18 141/82 H 94 10/24/20 03:56 10/24/20 03:56 10/24/20 03:56 10/24/20 03:56 10/24/20 03:56 - Laboratory Results Critical Laboratory Results Reviewed: No Critical Results Attending or Supervising Physician who Reviewed Labs: MARYAN MUKHERJEE IV - Radiology Results Critical Radiology Results Reviewed: No Critical Results Attending or Supervising Physician who Reviewed Radiology: MARYAN MUKHERJEE IV Discharge - Discharge Clinical Impression: Tobacco abuse Asthma exacerbation Qualifiers: Asthma severity: unspecified severity Asthma persistence: persistent Qualified Code(s): J45.901 - Unspecified asthma with (acute) exacerbation Condition: Stable Disposition: HOME, SELF-CARE Instructions: Asthma ([facility]) Additional Instructions: Return to the Emergency Department without delay if any worse. HOME CARE INSTRUCTIONS & INFORMATION: Thank you for choosing us for your medical needs. We hope you're satisfied with the care you received. After you leave, you must properly care for your problem and, at the same time, observe its progress. Any condition can change. Some illnesses can change rapidly over hours or days. If your condition worsens, return to the Emergency Department or see your physician promptly. ABOUT YOUR X-RAYS AND EKG'S: If you had an EKG or X-rays taken, they have been read by the Emergency Physician. The X-rays and EKG's will also be read by a Ra diologist or Broaching Machine Operator within 24 hours. If discrepancies are noted, you will be notified by telephone. Please be certain the ED has a correct telephone number & address where you can be reached. Also, realize that some fractures or abnormalities do not show up on initial X-rays. If your symptoms continue, see your physician. ABOUT YOUR LABORATORY TEST: If you had laboratory tests, the results have been reviewed by the Emergency Physician. Some test results (for example cultures) may not be available for several days. You will be contacted if any test result shows you need additional treatment. Please be certain the ED has a correct telephone number and address where you can be reached. ABOUT YOUR MEDICATIONS: You will receive instructions on how to take your medicine on the prescription label you receive. Additional information may be provided by the Pharmacy. If you have questions afterwards, call the ED for clarification or further instructions. Some prescribed medications may cause drowsiness. Do not perform tasks such as driving a car or operating machinery without consulting your Pharmacist. If you feel you need a refill of pain medication, your condition will need re-evaluation. Please do not call for a refill of any medication. ABOUT YOUR SIGNATURE: Signature of this document acknowledges to followin. Understanding that you received emergency treatment and that you may be released before al medical problems are known or treated. Please be certain the ED has a correct phone number & address where you can be reached. 2. Acknowledgement that you will arrange for follow-up care as recommended. 3. Authorization for the Emergency Physician to provide information to your follow-up Physician in order to maximize your care. AT ANY TIME, IF YOUR SYMPTOMS CHANGE SIGNIFICANTLY OR WORSEN OR YOU DEVELOP NEW SYMPTOMS, RETURN TO THE EMERGENCY DEPARTMENT IMMEDIATELY FOR RE-EVALUATION. OUR GOAL IS TO PROVIDE EXCELLENT MEDICAL CARE! WE HOPE THAT WE HAVE MET YOUR EXPECTATIONS DURING YOUR EMERGENCY DEPARTMENT VISIT AND THAT YOU FEEL YOU HAVE RECEIVED EXCELLENT CARE! Prescriptions: Prednisone [Deltasone 20 mg Tablet] 3 tab PO DAILY 5 Days #15 tablet Albuterol Sulfate [Proair HFA Inhalation Aerosol 8.5 gm MDI] 2 puff IH Q4H PRN #1 mdi PRN Reason: Referrals: ALEX CRUZ MD [Primary Care Provider] - Follow up as needed I personally performed the services described in the documentation, reviewed and edited the documentation which was dictated to the scribe in my presence, and it accurately records my words and actions.
[2020-10-24 10:10] VITALS: BP 165/74
== END 2020-10-24 10:12 | disposition home or self-care (01) ==
LOC: ER 03:48
DX: O26.91 Pregnancy related conditions, unspecified, first trimester (principal); J45.901 Unspecified asthma with (acute) exacerbation; O99.331 Smoking (tobacco) complicating pregnancy, first trimester; Z3A.08 8 weeks gestation of pregnancy; Z88.0 Allergy status to penicillin
CPT/HCPCS: 99283